=== PATIENT | female | born 1980 | race Caucasian/White ===

== ENCOUNTER → 2020-01-31 13:43 | Outpatient (CLI) | payer OTHER, SELFPAY ==
--- NOTE | ~2020-01-31 | XR_ITS ---
EXAMINATION: XR knee LT 2V DATE: 01/31/2020 14:02 INDICATION: Left knee pain. TECHNIQUE: 2 views of left knee were obtained. COMPARISON: Left knee radiographs 01/23/2011 FINDINGS: Bone alignment is normal. No fracture. There is mild osteoarthritis of medial and patellofe moral compartments. No knee joint effusion. There is dystrophic calcification of medial collateral li gament proximally. IMPRESSION: 1. Mild left knee osteoarthritis. Reviewed, dictated and finalized at location [facility]. [employer] SECRETARY
== END ==
PROVIDERS: PCP Emergency Medicine; Visit Provider Emergency Medicine
DX: M17.12 Unilateral primary osteoarthritis, left knee (principal)
CPT/HCPCS: 73560

== ENCOUNTER 2023-03-07 08:38 | Emergency (ER) | payer OTHER, SELFPAY ==
--- NOTE | ~2023-03-07 | CT_ITS ---
EXAMINATION: CT brain wo con DATE: 03/07/2023 09:23 INDICATION: Syncopal episode. Injury to posterior aspect of head. TECHNIQUE: Computed tomography (CT) of the head was performed without intravenous contrast. The mA wa s adjusted according to patient size. Iterative reconstruction technique was employed. Exam dose: 60 5.33 mGy-cm total exam DLP. COMPARISON: None FINDINGS: Cephalohematoma high over the posterior left parietal convexity. No skull fracture or bone destruction. No coup or contrecoup intracranial injury is evident. No intracranial mass lesion or hemorrhage, midline shift or mass effect effect. Normal ventricular si ze. No subdural or epidural hematoma. There is a blowout fracture of the floor of the right orbit, likely old. Paranasal sinuses and mastoid air cells are unremarkable. IMPRESSION: Mild high posterior left parietal cephalhematoma; no skull fracture or acute intracrania l finding Blowout fracture of the floor of the right orbit, likely old; recommend clinical correlation Reviewed, dictated and finalized at [facility]. Reviewed, dictated and finalized at location [facility]. IMPRESSION: Mild high posterior left parietal cephalhematoma; no skull fractur e or acute intracranial finding Blowout fracture of the floor of the right orbit, likely old; recommend clinica l correlation
--- NOTE | ~2023-03-07 | XR_ITS ---
XR clavicle LT DATE: 03/07/2023 09:28 INDICATION: Fall today. Tenderness over clavicle TECHNIQUE: AP and angled AP views of left clavicle COMPARISON: None FINDINGS: Left cervical rib is noted. Elongated bilateral C7 transverse processes. No fracture or dislocation of the left clavicle. Normal alignment of the left acromioclavicular and g lenohumeral joints. IMPRESSION: No evidence of left clavicle fracture Left cervical rib Bilateral elongated C7 transverse processes Reviewed, dictated and finalized at location [facility].
[2023-03-07 08:39] VITALS: BP 158/99; PULSE 108; RESP 20; TEMP 36.7; O2SAT 99
--- NOTE | 2023-03-07 08:46 | ECG_ITS ---
Measurements Intervals [place] Rate: 106 P: 48 VT: 142 QRS: 23 QRSD: 86 T: 15 QT: 319 QTc: 424 Interpretive Statements SINUS TACHYCARDIA BASELINE ARTIFACT BORDERLINE ECG NO PREVIOUS ECG AVAILABLE FOR COMPARISON Electronically Signed On 03-07-2023 15:27:53 CDT by Reece Diaz M.D.
[2023-03-07 08:55] VITALS: PULSE 102
[2023-03-07 09:05] LABS: Basophils Absolute Auto 0.1 K/mm3 (0.0-0.1); Basophils Percent Auto 1.9 % (0.2-1.2); Eosinophils Absolute Auto 0.1 K/mm3 (0-0.3); Eosinophils Percent Auto 1.2 % (0-4.4); Hematocrit 39.6 % (37.0-47.0); Hemoglobin 13.5 g/dL (12.0-15.0); Immature Granulocyte Absolute 0.01 K/mm3 (0.00-0.031); Immature Granulocyte Percent A 0.2 % (0-0.5); Lymphocytes Absolute Auto 1.18 K/mm3 (0.9-3.2); Lymphocytes Percent Auto 28.2 % (18.3-44.2); Mean Corpuscular HGB Conc 34.1 g/dl (32-36); Mean Corpuscular Hemoglobin 35.3 pg (26-34); Mean Corpuscular Volume 103.7 fl (80-100); Mean Platelet Volume 9.7 fl (7.4-10.4); Monocytes Absolute Auto 0.4 K/mm3 (0.1-0.6); Monocytes Percent Auto 8.9 % (2.6-8.5); Neutrophils Absolute Auto 2.5 K/mm3 (1.3-6.7); Neutrophils Percent Auto 59.6 % (45.5-73.1); Platelet Count Result 181 k/mm3 (150-375); Red Blood Count 3.82 M/mm3 (4.2-5.4); Red Cell Distribution Width 13.9 % (11.5-14.5); White Blood Count 4.2 K/mm3 (4.5-10.0)
--- NOTE | 2023-03-07 09:13 | ED.DIZZY ---
HPI - Dizziness General Chief Complaint: Syncope <KEILA Estes Last Filed: 03/07/23 18:46> Stated Complaint: choked on pill, passed out , lac to head <KEILA Estes Last Filed: 03/07/23 18:46> Time Seen by Provider: 03/07/23 08:57 <KEILA Estes Last Filed: 03/07/23 18:46> Source: patient <KEILA Estes Last Filed: 03/07/23 18:46> Mode of arrival: ambulatory <KEILA Estes Last Filed: 03/07/23 18:46> Limitations: no limitations <KEILA Estes Last Filed: 03/07/23 18:46> History of Present Illness HPI Narrative: This is a 42-year-old female who presents to the ED with chief complaint of a syncopal episode after choking on her antibiotic pill. Patient has been on Amoxil for URI and abscess. Patient states she remembers swallowing wrong and having a coughing fit, then she fell back and hit the back of her head. She feels like she may have passed out. She suffered a laceration to the back of the head. She reports pain to the left clavicle. Endorses anxiety. Denies any further site of pain or injury. Denies any preceding chest pain or shortness of breath. Denies dysphagia or shortness of breath. Tetanus up-to-date. <KEILA Estes Last Filed: 03/07/23 18:46> Related Data Allergies/Adverse Reactions: Allergies Allergy/AdvReac Type Severity Reaction Status Date / Time No Known Allergies Allergy Verified 03/07/23 08:56 <KEILA Estes Last Filed: 03/07/23 18:46> Review of Systems Review of Systems: CONSTITUTIONAL: Denies fever, chills, or sweats. EYES: Denies visual changes, redness, or discharge. ENT: Denies rhinorrhea, congestion, sore throat, or otalgia. CARDIOVASCULAR: Denies chest pain, palpitations, or edema. RESPIRATORY: Denies cough or dyspnea. GASTROINTESTINAL: Denies abdominal pain, nausea, vomiting, or diarrhea. GENITOURINARY: Denies dysuria or hematuria. SKIN: Endorses laceration. Denies rash or itching. MUSCULOSKELETAL: Endorses left clavicle pain. Denies back pain, joint pain, or myalgia. NEUROLOGIC: Endorses syncope and headache. Denies numbness, dizziness, or weakness. PSYCHIATRIC: Denies anxiety or depression. <Juliano Ramirez PA-C - Last Filed: 03/07/23 18:46> Exam Narrative: GENERAL: Well-appearing, well-nourished, and in no acute distress. HEAD: Normocephalic, atraumatic. EYES: PERRLA and EOMI. ENT: Nares clear, no rhinorrhea or epistaxis. Mucous membranes moist. Oropharynx without tonsillar hypertrophy exudate or other lesions. NECK: Supple. No adenopathy or masses. CHEST: No respiratory distress. Clear to auscultation. No wheezes rales or rhonchi. Sats 99% on room air HEART: Regular rate and rhythm. No murmur heard. Normal peripheral pulses. ABDOMEN: Soft, nontender, nondistended, normal active bowel sounds. EXTREMITIES: Mild middle third left clavicular tenderness. No bruising. No tenting of skin. MSK exam is otherwise benign. Normal range of motion. No edema. SKIN: There is mild area of swelling to the left posterior occiput. 3 cm linear, clean laceration to the mid posterior occiput. Bleeding controlled. No foreign bodies. Mildly tender. Warm, dry, no rash. NEURO: Alert and oriented x3. No focal deficits. Cranial nerves II through XII intact. PSYCH: Normal mood and affect. <Juliano Ramirez PA-C - Last Filed: 03/07/23 18:46> Course [employer] TECHNICIAN/PA Physician Supervision For this patient encounter, I reviewed the W[employer]MILL TECHNICIAN or PA documentation, treatment plan, and was responsible for the medical decision making; and I had [id number] time with this patient. <Eleazar Carlson MD - Last Filed: 03/07/23 19:24> Vital Signs Vital signs: Vital Signs Temperature 98.0 F 03/07/23 08:39 Pulse Rate 108 H 03/07/23 08:39 Respiratory Rate 20 03/07/23 08:39 Blood Pressure 158/99 H 03/07/23 08:39 Pulse Oximetry 99 03/07/23 08:39 Oxygen Delivery Room Air 03/07/23 08:39
[2023-03-07 09:21] LABS: Alanine Aminotransferase 85 U/L (6-35); Albumin Level 3.7 g/dL (3.5-5.1); Alkaline Phosphatase 154 U/L (38-126); Anion Gap 6 mmol/L (8-16); Aspartate Amino Transferase 198 U/L (14-36); Bilirubin,Total 0.8 mg/dL (0.2-1.3); Blood Urea Nitrogen 14 mg/dL (7-17); Calcium 7.8 mg/dL (8.4-10.2); Carbon Dioxide 26 mmol/L (22-30); Chloride 100 mmol/L (98-107); Estimated CRCL calculation 108 ml/min; Estimated Glomerular Filt Rate > 60; Glucose 108 mg/dL (65-110); Potassium 4.1 mmol/L (3.4-5.0); Sodium 132 mmol/L (137-145)
[2023-03-07] MEDS: SODIUM CHLORIDE 0.9% IV 1,000 ML 999 ML IV CONT (09:40)
[2023-03-07 09:58] VITALS: BP 121/80; BP 145/92; PULSE 92; PULSE 96
[2023-03-07 10:00] VITALS: BP 129/83; PULSE 100
[2023-03-07 10:59] VITALS: BP 140/87; PULSE 95; RESP 17; O2SAT 98
== END 2023-03-07 11:01 | disposition home or self-care (01) ==
PROVIDERS: Emergency Medicine; Emergency Provider Physician Assistant
DX: R55 Syncope and collapse (principal); S01.01XA Laceration without foreign body of scalp, initial encounter; R00.0 Tachycardia, unspecified; W18.39XA Other fall on same level, initial encounter
CPT/HCPCS: 12002; 36415; 70450; 73000; 80053; 85025; 93005; 96360; 99284; J7030